=== PATIENT | female | born 1970 | race Caucasian/White ===

== ENCOUNTER 2017-02-02 18:32 | Emergency (ER) | payer OTHER ==
[~2017-02-02] VITALS: Ht 157.5 cm; Wt 80.7 kg
[~2017-02-02 18:32] MED LIST: CYCL-36 PO; LIDO1SOL PO; OXYC1SOL5 PO
[2017-02-02 18:38] VITALS: BP 134/78; PULSE 74; RESP 16; TEMP 98.4; O2SAT 100
[2017-02-02 19:28] LABS: BLOOD, URINE NEG (NEG); GLUCOSE,URINE NEG (NEG); KETONE, URINE NEG (NEG); NITRITE,URINE NEG (NEG); PH, URINE 5.5 (5.0-8.5)
[2017-02-02 19:46] LABS: COMMENT (UR) CULT NOT INDICATED; CULTURE IF INDICATED CULT NOT INDICATED; MUCUS URINE OCC /lpf (OCC); SQUAMOUS EPITHELIAL CELL URINE 0-5 /hpf (0-5); URINE COLOR YELLOW (YELLW/STRAW)
[2017-02-02] MEDS ORDERED: SODIUM CHLOR 0.9% 1000 ML INJ 1,000 ML IV ONE (19:47)
--- NOTE | 2017-02-02 19:47 | PD ---
HPI Chief Complaint: Abdominal Pain Time Seen by Provider: 19:22 Travel History International Travel<30 days: No Contact w/Intl Traveler<30days: No Traveled to known affect area: No History of Present Illness HPI The patient is a 46-year-old female that complains of bilateral flank pain radiating to the left lower quadrant. Most all the pain is in the lower quadrants at this time. She denies any vaginal discharge, diarrhea, fever or vomiting but does have some nausea. She is A0. She does have a history of a tummy Tuck and 3 C-sections but these are her only abdominal surgeries. She is on control IUD. She had the NovaSure procedure where her endometrium was scraped and she does not have periods because of this. She states the pain starts in the pelvis and tracks up to both sides of her back. PFSH Past Medical History Tetanus Vaccination: > 5 Years Influenza Vaccination: No ?: Not Dilation and Curettage (D&C): Yes (novasure precedure) Past Surgical History Section: Yes (x3) Other Surgery: Yes (tummy tuck) Social History Alcohol Use: Yes (occ) Tobacco Use: No Allergies-Medications (Allergen,Severity, Reaction): Coded Allergies: No Known Allergies (Unverified , 02/02/17) Reported Meds & Prescriptions Reported Meds & Active Scripts Active No Active Prescriptions or Reported Medications Review of Systems Except as stated in HPI: all other systems reviewed are Neg Physical Exam Narrative GENERAL: The patient is alert, oriented 3 in moderate apparent distress with her pelvic pain. Her vital signs are normal. SKIN: Focused skin assessment warm/dry. HEAD: Atraumatic. Normocephalic. EYES: Pupils equal and round. No scleral icterus. No injection or drainage. ENT: No nasal bleeding or discharge. Mucous membranes pink and moist. NECK: Trachea midline. No JVD. CARDIOVASCULAR: Regular rate and rhythm. No murmur appreciated. RESPIRATORY: No accessory muscle use. Clear to auscultation. Breath sounds equal bilaterally. GASTROINTESTINAL: Abdomen soft, with tenderness in the bilateral pelvis, nondistended. Hepatic and splenic margins not palpable. No guarding or rebound is present. MUSCULOSKELETAL: No obvious deformities. No clubbing. No cyanosis. No edema. NEUROLOGICAL: Awake and alert. No obvious cranial nerve deficits. Motor grossly within normal limits. Normal speech. PSYCHIATRIC: Appropriate mood and affect; insight and judgment normal. GENITOURINARY: Normal external genitalia without lesions or erythema. Vaginal vault without blood or drainage. Cervical os was closed without drainage. There is cervical motion tenderness and movement of the cervix completely reproduces the patient's pain. Uterus tender and nonenlarged. Bilateral adnexa tender without masses. Data Data Last Documented VS Vital Signs Date Time Temp Pulse Resp B/P Pulse Ox O2 Delivery O2 Flow Rate FiO2 02/02/17 18:38 98.4 74 16 134/78 100 Orders Urinalysis - C+S If Indicated (02/02/17 18:45) Complete Blood Count With Diff (02/02/17 19:47) Comprehensive Metabolic Panel (02/02/17 19:47) Gc And Chlamydia Pcr (02/02/17 19:47) Wet Prep Profile (02/02/17 19:47) Ketorolac Inj (Toradol Inj) (02/02/17 20:30) Non-Formulary Drug (02/02/17 21:00) Labs Laboratory Tests Test 02/02/17 02/02/17 19:20 20:00 Urine Color YELLOW Urine Turbidity CLEAR Urine pH 5.5 Urine Specific [place] 1.013 Urine Protein NEG mg/dL Urine Glucose (UA) NEG mg/dL Urine Ketones NEG mg/dL Urine Occult Blood NEG Urine Nitrite NEG Urine Bilirubin NEG Urine Leukocyte Esterase NEG Urine Squamous Epithelial 0-5 /hpf Cells Urine Mucus OCC /lpf Microscopic Urinalysis Comment CULT NOT INDICATED White Blood Count 8.4 TH/MM3 Red Blood Count 4.07 MIL/MM3 Hemoglobin 12.3 GM/DL Hematocrit 35.3 % Mean Corpuscular Volume 86.5 FL Mean Corpuscular Hemoglobin 30.2 PG Mean Corpuscular Hemoglobin 34.9 % Concent Red Cell Distribution Width 11.8 % Platelet Count 223 TH/MM3 Mean Platelet Volume 9.4 FL Neutrophils (%) (Auto) 59.5 % Lymphocytes (%) (Auto) 20.0 % Monocytes (%) (Auto) 7.0 % Eosinophils (%) (Auto) 10.1 % Basophils (%) (Auto) 3.4 % Neutrophils # (Auto) 4.9 TH/MM3 Lymphocytes # (Auto) 1.7 TH/MM3 Monocytes # (Auto) 0.6 TH/MM3 Eosinophils # (Auto) 0.9 TH/MM3 Basophils # (Auto) 0.3 TH/MM3 CBC Comment DIFF FINAL Differential Comment Clue Cells (Wet Prep) NONE SEEN Vaginal Trichomonas (Wet Prep) NONE SEEN Vaginal Yeast (Wet Prep) NONE SEEN Sodium Level 140 MEQ/L Potassium Level 3.5 MEQ/L Chloride Level 107 MEQ/L Carbon Dioxide Level 25.3 MEQ/L Anion Gap 8 MEQ/L Blood Urea Nitrogen 15 MG/DL Creatinine 0.75 MG/DL Estimat Glomerular Filtration 82 ML/MIN Rate Random Glucose 100 MG/DL Calcium Level 8.4 MG/DL Total Bilirubin 0.5 MG/DL Aspartate Amino Transf 19 U/L (AST/SGOT) Alanine Aminotransferase 32 U/L (ALT/SGPT) Alkaline Phosphatase 70 U/L Total Protein 6.7 GM/DL Albumin 3.4 GM/DL [facility] Medical Decision Making Medical Screen Exam Complete: Yes Emergency Medical Condition: Yes Medical Record Reviewed: Yes Interpretation(s) The wet prep is negative for clue cells, Trichomonas and vaginal knees. The urinalysis is normal and culture is not indicated. The CBC is normal. The complete metabolic profile shows a GFR of 82, calcium 8.4 but is otherwise normal. The [id number] urine test is negative. Differential Diagnosis PID, appendicitis, diverticulitis, cystitis, pyelonephritis, colitis, anemia, electrolyte disorder, ovarian torsion Narrative Course The exquisite cervical tenderness suggest PID. The bilateral tenderness/pain is against ovarian torsion. The fact that she feels pain tracking up into her back and also suggest PID. There is no evidence for any urinary infection. Plan: The patient will be given Rocephin and doxycycline. Diagnosis Primary Impression: PID (acute pelvic inflammatory disease) Additional Instructions: As we discussed, follow-up with your zipper repairer as soon as possible. Drink plenty of liquids. Med/Other Pt SpecificInfo: Prescription(s) given Scripts Promethazine (Phenergan)25 Mg [id number] Mg PO Q6H PRN (NAUSEA OR VOMITING) #30 TAB Ref 0 Prov:Osmar Shrestha MD 02/02/17 Hydrocodone-Acetaminophen (Lortab)5-325 Mg Tab1 Tab PO Q4H PRN (PAIN) #30 TAB Ref 0 Prov:Osmar Shrestha MD 02/02/17 Doxycycline Hyclate 100 Mg [id number] Mg PO BID #20 CAP Ref 0 Prov:Osmar Shrestha MD 02/02/17 Disposition: 01 DISCHARGE HOME Condition: Stable Osmar Shrestha MD February 02, 2017 19:47
[2017-02-02] MEDS ORDERED: ONDANSETRON HCL 4 MG/2 ML VIAL IV ONE (20:00)
[2017-02-02] MEDS ORDERED: KETOROLAC TROMETHAMINE 60 MG/2 ML (IM) VIAL IVP ONE (20:00)
[2017-02-02] MEDS ORDERED: KETOROLAC TROMETHAMINE 60 MG/2 ML (IM) VIAL IM ONE (20:30)
[2017-02-02 20:43] LABS: AUTOMATED NEUTROPHIL # 4.9 TH/MM3 (1.8-7.7); BASOPHIL # 0.3 TH/MM3 (0-0.2); BASOPHIL % 3.4 % (0.0-2.0); EOSINOPHIL # 0.9 TH/MM3 (0-0.4); EOSINOPHIL % 10.1 % (0.0-4.0); HEMATOCRIT 35.3 % (35.0-46.0); HEMO FLAGS DIFF FINAL; LYMPHOCYTE # 1.7 TH/MM3 (1.0-4.8); MEAN CELL VOLUME 86.5 FL (80.0-100.0); MEAN CORPUSCULAR HEMOGLOBIN 30.2 PG (27.0-34.0); MEAN CORPUSCULAR HGB CONC 34.9 % (32.0-36.0); NEUT % 59.5 % (16.0-70.0); PLATELET COUNT 223 TH/MM3 (150-450); RED BLOOD COUNT 4.07 MIL/MM3 (4.00-5.30); RED CELL DISTRIBUTION WIDTH 11.8 % (11.6-17.2); WHITE BLOOD COUNT 8.4 TH/MM3 (4.0-11.0)
[2017-02-02 20:52] LABS: CHLORIDE 107 MEQ/L (98-107); POTASSIUM 3.5 MEQ/L (3.5-5.1); SODIUM (NA) 140 MEQ/L (136-145)
[2017-02-02 20:57] LABS: ANION GAP 8 MEQ/L (5-15); BICARBONATE 25.3 MEQ/L (21.0-32.0); BLOOD UREA NITROGEN 15 MG/DL (7-18)
[2017-02-02 21:00] LABS: ALT (GPT) 32 U/L (10-53); AST (GOT) 19 U/L (15-37); GLOMERULAR FILTRATION RATE 82 ML/MIN (>89)
[2017-02-02] MEDS ORDERED: PROMETHAZINE 25 MG IM ONE (21:00)
[2017-02-02 21:02] LABS: TOTAL BILIRUBIN ADULT 0.5 MG/DL (0.2-1.0)
[2017-02-02 21:03] LABS: ALKALINE PHOSPHATASE 70 U/L (45-117)
[2017-02-02 21:25] VITALS: BP 120/78; PULSE 78; RESP 17; O2SAT 97
[2017-02-02] MEDS ORDERED: PROM25TA10 PO (21:26)
[2017-02-02] MEDS ORDERED: DOXY100C PO (21:26)
[2017-02-02] MEDS ORDERED: HYDR-3533 PO (21:26)
[2017-02-02] MEDS ORDERED: LIDOCAINE HCL 1% 50 ML VIAL IM ONE (21:45)
[2017-02-02 22:05] VITALS: BP 117/75; PULSE 68; RESP 16; O2SAT 98
[2017-02-02 22:35] VITALS: BP 122/72
[2017-02-03 00:16] LABS: CHLAMYDIA PCR NOT DETECTED (NOT DETECT); NEISSERIA PCR NOT DETECTED (NOT DETECT)
[2017-03-05] MEDS ORDERED: CEFT1INJ IM (19:30)
[2017-03-05] MEDS ORDERED: [UNRECOGNIZED DRUG - CODE] PO (19:32)
[2017-03-05] MEDS ORDERED: NAPR500T PO (19:34)
== END 2017-02-02 22:37 | disposition home or self-care (01) ==
LOC: PHED 18:32
DX: N73.9 Female pelvic inflammatory disease, unspecified (principal)
CPT/HCPCS: 80053; 81001; 85025; 87210; 87491; 87591; 96365; 96372; 99284; J0696; J1885

== ENCOUNTER 2017-03-06 07:19 | Emergency (ER) | payer OTHER ==
[~2017-03-06] VITALS: Ht 157.5 cm; Wt 78.0 kg
[~2017-03-06 07:19] MED LIST changes: -CYCL-36 PO; -LIDO1SOL PO; +NAPR500T PO; -OXYC1SOL5 PO; +[UNRECOGNIZED DRUG - CODE] PO
[2017-03-06 07:23] VITALS: BP 145/94; PULSE 66; RESP 17; TEMP 98.3; O2SAT 100
[2017-03-06] MEDS ORDERED: IBUP200C PO (08:15)
--- NOTE | 2017-03-06 08:28 | PD ---
HPI Chief Complaint: Pain: Acute or Chronic Time Seen by Provider: 08:19 Travel History International Travel<30 days: No Contact w/Intl Traveler<30days: No Traveled to known affect area: No History of Present Illness HPI This is a 46 year old female who presents to the emergency department with abdominal discomfort this been going on for 4 days mostly in the left lower pelvis, constant, radiating to the low back with numbness and paresthesias down the back of her left leg extending around the knee. She does have a history of sciatica in the past. She says she feels like this is associated with her ovary. She said she has had intermittent symptoms like this but never this severe ever since she had an endometrial ablation 2 years ago. She denies any fevers or chills, denies any vaginal discharge or bleeding and denies any dysuria. She denies any recent injury although she does work out. PFSH Past Medical History Diminished Hearing: No Tetanus Vaccination: Unknown Influenza Vaccination: No ?: Not LMP: ON BC, STATES DOES NOT GET. Dilation and Curettage (D&C): Yes (novasure precedure) Past Surgical History Section: Yes (x3) Other Surgery: Yes (tummy tuck) Social History Alcohol Use: Yes (occ) Tobacco Use: No Substance Use: No Allergies-Medications (Allergen,Severity, Reaction): Coded Allergies: No Known Allergies (Unverified , 03/06/17) Reported Meds & Prescriptions Reported Meds & Active Scripts Active Reported Ibuprofen 200 Mg Cap 800 Mg PO Q6H PRN Review of Systems Except as stated in HPI: all other systems reviewed are Neg Physical Exam Narrative GENERAL:Well appearing, no acute distress SKIN: Focused skin assessment warm and dry. HEAD: Atraumatic. Normocephalic. EYES: Pupils equal and round. No injection or drainage. ENT: Moist mucous membranes NECK: Trachea midline. CARDIOVASCULAR: Regular rate and rhythm. No murmur appreciated. RESPIRATORY: Clear to auscultation. Breath sounds equal bilaterally. GASTROINTESTINAL: Abdomen soft, firm mass in the suprapubic region, tender to palpation in the left lower quadrant with no rebound/guarding SCALE MANAGER: scant white discharge in the vault, normal appearing cervix MUSCULOSKELETAL: No obvious deformities. NEUROLOGICAL: Awake and alert. No obvious cranial nerve deficits. Moving all extremities. PSYCHIATRIC: Appropriate mood and affect; insight and judgment normal. Data Data Last Documented VS Vital Signs Date Time Temp Pulse Resp B/P Pulse Ox O2 Delivery O2 Flow Rate FiO2 03/06/17 10:22 67 16 132/79 97 Room Air 03/06/17 07:23 98.3 Orders Complete Blood Count With Diff (03/06/17 08:25) Comprehensive Metabolic Panel (03/06/17 08:25) Ed Urine Pregnancytest Poc (03/06/17 08:25) Urinalysis - C+S If Indicated (03/06/17 08:25) Ct Abd/Pel W Iv Contrast(Rout) (03/06/17 ) Ketorolac Inj (Toradol Inj) (03/06/17 08:30) Sodium Chlor 0.9% 1000 Ml Inj (Ns 1000 M (03/06/17 08:30) Hydromorphone Pf Inj (Dilaudid Pf Inj) (03/06/17 08:30) Iohexol 350 Inj (Omnipaque 350 Inj) (03/06/17 09:30) Labs Laboratory Tests Test 03/06/17 03/06/17 08:35 08:59 White Blood Count 6.3 TH/MM3 Red Blood Count 4.68 MIL/MM3 Hemoglobin 13.6 GM/DL Hematocrit 40.7 % Mean Corpuscular Volume 86.9 FL Mean Corpuscular Hemoglobin 29.1 PG Mean Corpuscular Hemoglobin 33.5 % Concent Red Cell Distribution Width 12.0 % Platelet Count 202 TH/MM3 Mean Platelet Volume 8.8 FL Neutrophils (%) (Auto) 55.7 % Lymphocytes (%) (Auto) 21.5 % Monocytes (%) (Auto) 7.7 % Eosinophils (%) (Auto) 14.2 % Basophils (%) (Auto) 0.9 % Neutrophils # (Auto) 3.5 TH/MM3 Lymphocytes # (Auto) 1.3 TH/MM3 Monocytes # (Auto) 0.5 TH/MM3 Eosinophils # (Auto) 0.9 TH/MM3 Basophils # (Auto) 0.1 TH/MM3 CBC Comment DIFF FINAL Differential Comment Sodium Level 140 MEQ/L Potassium Level 4.3 MEQ/L Chloride Level 106 MEQ/L Carbon Dioxide Level 27.1 MEQ/L Anion Gap 7 MEQ/L Blood Urea Nitrogen 17 MG/DL Creatinine 0.80 MG/DL Estimat Glomerular Filtration 77 ML/MIN Rate Random Glucose 95 MG/DL Calcium Level 8.3 MG/DL Total Bilirubin 0.3 MG/DL Aspartate Amino Transf 26 U/L (AST/SGOT) Alanine Aminotransferase 49 U/L (ALT/SGPT) Alkaline Phosphatase 73 U/L Total Protein 6.9 GM/DL Albumin 3.8 GM/DL Urine Collection Type CLEAN CATCH Urine Color YELLOW Urine Turbidity CLEAR Urine pH 6.5 Urine Specific [place] 1.014 Urine Protein NEG mg/dL Urine Glucose (UA) NEG mg/dL Urine Ketones NEG mg/dL Urine Occult Blood NEG Urine Nitrite NEG Urine Bilirubin NEG Urine Leukocyte Esterase NEG Urine WBC 0-2 /hpf Urine Squamous Epithelial 6-8 /hpf Cells Urine Bacteria OCC /hpf Microscopic Urinalysis Comment CULT NOT INDICATED Urine Collection Time 08:59 [facility] Medical Decision Making Medical Screen Exam Complete: Yes Emergency Medical Condition: Yes Interpretation(s) Afebrile, no tachycardia, hypertensive No leukocytosis Electrolytes are reassuring Urinalysis: No infection Last 24 hours Impressions Abdomen/Pelvis CT 03/06/17 0000 Signed Impressions: Service Date/Time: February 09:08 - CONCLUSION: Obstructed endometrial canal with marked fluid retention in the uterus and bilateral hydrosalpinx. Obstructing neoplastic process in the lower uterine body or cervix needs to be excluded. 2.3 cm low density left adrenal nodule characteristic of an adenoma however further characterization with MRI should be considered. 3 discrete hepatic lesions, 2 of which are well characterize and represent a simple cyst and hemangioma. The third lesion in the inferior margin of the liver is nonspecific and needs further characterization. This can also be performed with MRI. No other acute or significant abnormality. Orion Marshall MD Differential Diagnosis Fibroid uterus, sciatica, ovarian cyst, ovarian torsion, pelvic inflammatory disease Narrative Course This is a 46-year-old female who presents to the emergency department with lower abdominal discomfort. She is a history of to endometrial ablations in the past. She was placed on a monitor and an IV was established. Labs were obtained which were reassuring. CT abdomen and pelvis demonstrates an obstructed endometrial canal with fluid retention in the uterus and bilateral hydrosalpinx. I spoke to Dr. Burch who was on-call for gynecology. He felt this was likely hematometrium in the setting of a stenosis following the patient 's ablations. He recommended that she follow up outpatient with a natural science manager. I advised her if she develops fevers or worsening symptoms she should return to the emergency department. We discussed the urgency of following up with her natural science manager as soon as possible and the patient expressed understanding. Diagnosis Primary Impression: Hematometra Patient Instructions: General Instructions Additional Instructions: Your endometrial canal is obstructed with fluid retention in your uterus. This needs to be evaluated by a natural science manager as soon as possible. If you develop fevers, chills, vaginal discharge or worsening pain return to the emergency department. Med/Other Pt SpecificInfo: Prescription(s) given Scripts Tramadol 50 Mg Tab50 Mg PO Q6H PRN (PAIN) #10 TAB Prov:eKy Monsalve MD 03/06/17 Disposition: 01 DISCHARGE HOME Condition: Stable Key Monsalve MD Mar 06, 2017 08:28
[2017-03-06] MEDS ORDERED: HYDROmorphone HCL PF 1 MG/ML VIAL IV PUSH ONE (08:30)
[2017-03-06] MEDS ORDERED: SODIUM CHLOR 0.9% 1000 ML INJ 1,000 ML IV ONE (08:30)
[2017-03-06] MEDS ORDERED: KETOROLAC TROMETHAMINE 30 MG/ML (IVP) VIAL IV PUSH ONE (08:30)
[2017-03-06 08:45] LABS: AUTOMATED NEUTROPHIL # 3.5 TH/MM3 (1.8-7.7); BASOPHIL # 0.1 TH/MM3 (0-0.2); BASOPHIL % 0.9 % (0.0-2.0); EOSINOPHIL # 0.9 TH/MM3 (0-0.4); EOSINOPHIL % 14.2 % (0.0-4.0); HEMATOCRIT 40.7 % (35.0-46.0); HEMO FLAGS DIFF FINAL; LYMPH % 21.5 % (9.0-44.0); LYMPHOCYTE # 1.3 TH/MM3 (1.0-4.8); MEAN CELL VOLUME 86.9 FL (80.0-100.0); MEAN CORPUSCULAR HEMOGLOBIN 29.1 PG (27.0-34.0); MEAN CORPUSCULAR HGB CONC 33.5 % (32.0-36.0); MONO % 7.7 % (0.0-8.0); NEUT % 55.7 % (16.0-70.0); PLATELET COUNT 202 TH/MM3 (150-450); RED BLOOD COUNT 4.68 MIL/MM3 (4.00-5.30); WHITE BLOOD COUNT 6.3 TH/MM3 (4.0-11.0)
[2017-03-06 08:52] LABS: CHLORIDE 106 MEQ/L (98-107); POTASSIUM 4.3 MEQ/L (3.5-5.1); SODIUM (NA) 140 MEQ/L (136-145)
[2017-03-06 08:56] LABS: ANION GAP 7 MEQ/L (5-15); BICARBONATE 27.1 MEQ/L (21.0-32.0); BLOOD UREA NITROGEN 17 MG/DL (7-18)
[2017-03-06 08:59] LABS: ALT (GPT) 49 U/L (10-53); AST (GOT) 26 U/L (15-37); GLOMERULAR FILTRATION RATE 77 ML/MIN (>89)
[2017-03-06 09:01] LABS: TOTAL BILIRUBIN ADULT 0.3 MG/DL (0.2-1.0)
[2017-03-06 09:02] LABS: ALKALINE PHOSPHATASE 73 U/L (45-117)
[2017-03-06 09:05] LABS: BLOOD, URINE NEG (NEG); GLUCOSE,URINE NEG (NEG); KETONE, URINE NEG (NEG); NITRITE,URINE NEG (NEG); PH, URINE 6.5 (5.0-8.5)
[2017-03-06 09:09] LABS: METHOD OF COLLECTION CLEAN CATCH; URINE COLOR YELLOW (YELLW/STRAW)
[2017-03-06 09:10] LABS: BACTERIA, URINE OCC /hpf; COMMENT (UR) CULT NOT INDICATED; CULTURE IF INDICATED CULT NOT INDICATED; WBC, URINE 0-2 /hpf (0-5)
[2017-03-06] MEDS ORDERED: IOHEXOL 350 MG/ML 10 ML VIAL (for RAD DIAG) IV ONE (09:30)
--- NOTE | 2017-03-06 10:09 | RADRPT ---
EXAM DATE/TIME: 03/06/2017 09:08 [place] COMPARISON: No previous studies available for comparison. INDICATIONS : Left lower quadrant pain. IV CONTRAST: 100 cc Omnipaque 350 (iohexol) IV ORAL CONTRAST: No oral contrast ingested. RADIATION DOSE: 15.54 CTDIvol (mGy) MEDICAL HISTORY : None SURGICAL HISTORY : Tubal ligation. section.Tummy tuck. ENCOUNTER: Initial ACUITY: 4 - 6 days PAIN SCALE: 10/10 LOCATION: Left lower quadrant TECHNIQUE: Volumetric scanning of the abdomen and pelvis was performed. Using automated exposure control and ad justment of the mA and/or kV according to patient size, radiation dose was kept as low as reasonably achievable to obtain optimal diagnostic quality images. DICOM format image data is available electro nically for review and comparison. FINDINGS: LOWER LUNGS: The visualized lower lungs are clear. LIVER: 3 discrete space occupying lesions are identified in the liver. There is a 2.7 cm simple cyst in the left hepatic lobe. A 2.1 cm hypodense nodule with peripheral nodular enhancement is identified in seg ment 8 just beneath the dome of the diaphragm. The third lesion is located in the inferior posterior tip of the right hepatic lobe and measures 1.4 cm. This lesion is nonspecific. There is no dilation o f the biliary tree. No calcified gallstones. SPLEEN: Normal size without lesion. PANCREAS: Within normal limits. KIDNEYS: Normal in size and shape. There is no mass, stone or hydronephrosis. ADRENAL GLANDS: A 2.3 cm low-density nodule is identified in the left adrenal gland. Right adrenal gland is normal. VASCULAR: There is no aortic aneurysm. BOWEL/MESENTERY: The stomach, small bowel, and colon demonstrate no acute abnormality. There is no free intraperitone al air or fluid. ABDOMINAL WALL: Within normal limits. RETROPERITONEUM: There is no lymphadenopathy. BLADDER: No wall thickening or mass. REPRODUCTIVE: The endometrial canal is markedly distended with fluid. Bilateral hydrosalpinx is noted. INGUINAL: There is no lymphadenopathy or hernia. MUSCULOSKELETAL: Within normal limits for patient age. CONCLUSION: Obstructed endometrial canal with marked fluid retention in the uterus and bilateral hydrosalpinx. Ob structing neoplastic process in the lower uterine body or cervix needs to be excluded. 2.3 cm low density left adrenal nodule characteristic of an adenoma however further characterization with MRI should be considered. 3 discrete hepatic lesions, 2 of which are well characterize and represent a simple cyst and hemangio ma. The third lesion in the inferior margin of the liver is nonspecific and needs further characteriz ation. This can also be performed with MRI. No other acute or significant abnormality. Orion Marshall MD on March 06, 2017 at 9:45 Board Certified Radiologist. This report was verified electronically.
[2017-03-06 10:22] VITALS: BP 132/79; PULSE 67; RESP 16; O2SAT 97
[2017-03-06] MEDS ORDERED: TRAM50TA PO (10:29)
[2017-03-07] MEDS ORDERED: NORC5TAB PO (15:35)
== END 2017-03-06 10:49 | disposition home or self-care (01) ==
LOC: PHED 07:19
DX: N85.7 Hematometra (principal)
CPT/HCPCS: 74177; 80053; 81001; 84703; 85025; 96361; 96374; 96375; 99285; J1170; J1885; J7030; Q9967

== ENCOUNTER 2017-03-07 14:53 | Emergency (ER) | payer OTHER ==
[~2017-03-07] VITALS: Ht 157.5 cm; Wt 80.0 kg
[~2017-03-07 14:53] MED LIST changes: +IBUP200C PO; -NAPR500T PO; +TRAM50TA PO; -[UNRECOGNIZED DRUG - CODE] PO
[2017-03-07 14:55] VITALS: BP 142/81; PULSE 82; RESP 16; TEMP 98.2; O2SAT 98
--- NOTE | 2017-03-07 15:10 | PD ---
Physical Exam Time Seen by Provider: 15:07 Narrative 46 y/o female with lower abd/back pain, persistent. Seen at [facility] yesterday, d/ x with hematometra. Vital signs reviewed. Seen at triage desk. Awaiting bed placement. Data Data Last Documented VS Vital Signs Date Time Temp Pulse Resp B/P Pulse Ox O2 Delivery O2 Flow Rate FiO2 03/07/17 14:55 98.2 82 16 142/81 98 MDM Medical Record Reviewed: Yes Supervised Visit with STEFANI: Thaddeus Johnson Mar 07, 2017 15:10
[2017-03-07] MEDS ORDERED: NORC5TAB PO (15:35)
--- NOTE | 2017-03-07 15:35 | PD ---
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 Seen in our emergency department yesterday and diagnosed with hematometra, presumptively due to previous ablations and cervical scarring versus cervical cancer. Discharged to home and instructed to follow-up with ENVIRONMENTAL PLANNING ENGINEER. Met with primary who tried to assist her with ENVIRONMENTAL PLANNING ENGINEER follow-up which will be difficult due to her insurance patient states. She however hasn't having persistent pain and then tramadol given yesterday is not helping. PFSH Past Medical History Medical History: Denies Significant Hx Diminished Hearing: No ?: Unknown LMP: 2014 Dilation and Curettage (D&C): Yes (novasure precedure) Past Surgical History Section: Yes (x3) Other Surgery: Yes (tummy tuck) Social History Alcohol Use: Yes (socially ) Tobacco Use: No Substance Use: No Allergies-Medications (Allergen,Severity, Reaction): Coded Allergies: No Known Allergies (Unverified , 03/07/17) Reported Meds & Prescriptions Reported Meds & Active Scripts Active [place] (Hydrocodone-Acetaminophen) 5-325 mg Tab 1-2 Tab PO Q6H PRN Tramadol (Tramadol HCl) 50 Mg Tab 50 Mg PO Q6H PRN Reported Ibuprofen 200 Mg Cap 800 Mg PO Q6H PRN Review of Systems Except as stated in HPI: all other systems reviewed are Neg Physical Exam Narrative GENERAL: Well-appearing female in no acute distress SKIN: Focused skin assessment warm/dry. HEAD: Normocephalic. EYES: No scleral icterus. No injection or drainage. ENT: Mucous membranes pink and moist. CARDIOVASCULAR: Regular rate and rhythm. RESPIRATORY: No accessory muscle use. GASTROINTESTINAL: Abdomen soft, suprapubic fullness and tenderness MUSCULOSKELETAL: Normal gait NEUROLOGICAL: Awake and alert. Normal speech. PSYCHIATRIC: Appropriate mood and affect; insight and judgment normal. Data Data Last Documented VS Vital Signs Date Time Temp Pulse Resp B/P Pulse Ox O2 Delivery O2 Flow Rate FiO2 03/07/17 14:55 98.2 82 16 142/81 98 MDM Medical Decision Making Medical Screen Exam Complete: Yes Emergency Medical Condition: Yes Medical Record Reviewed: Yes Differential Diagnosis 46-year-old female here with pelvic pain. Diagnosed yesterday with hematometra , having persistent pain despite tramadol. Patient ultimately needs ENVIRONMENTAL PLANNING ENGINEER follow-up for cervical dilatation, possible hysteroscopy and biopsy. Narrative Course Patient will be given small prescription for [place] and encouraged to follow-up with ENVIRONMENTAL PLANNING ENGINEER. Given to ENVIRONMENTAL PLANNING ENGINEER clinic options for outpatient follow-up. Diagnosis Primary Impression: Hematometra Referrals: [facility] call for appointment [facility] call for appointment Additional Instructions: Continue Motrin, tramadol for mild to moderate pain. [place] as needed for severe pain. Follow-up with ENVIRONMENTAL PLANNING ENGINEER as discussed. Med/Other Pt SpecificInfo: Prescription(s) given Scripts Hydrocodone-Acetaminophen ([place])5-325 mg Tab1-2 Tab PO Q6H PRN (PAIN) #20 TAB Ref 0 Prov:Charleen Johnson MD 03/07/17 Disposition: 01 DISCHARGE HOME Condition: Stable Charleen Johnson MD Mar 07, 2017 15:35
== END 2017-03-07 15:58 | disposition home or self-care (01) ==
LOC: NEPD 14:53
DX: N85.7 Hematometra (principal); Z79.899 Other long term (current) drug therapy
CPT/HCPCS: 99283

== ENCOUNTER 2017-03-21 12:46 | Emergency (ER) | payer OTHER ==
[~2017-03-21] VITALS: Ht 157.5 cm; Wt 79.5 kg
[~2017-03-21 12:46] MED LIST changes: +NORC5TAB PO
[2017-03-21 12:48] VITALS: BP 156/91; PULSE 78; RESP 17; TEMP 98; O2SAT 100
[2017-03-21] MEDS ORDERED: KETOROLAC TROMETHAMINE 30 MG/ML (IVP) VIAL IV PUSH ONE (15:00)
[2017-03-21] MEDS ORDERED: SODIUM CHLOR 0.9% 1000 ML INJ 1,000 ML IV ONE (15:00)
[2017-03-21] MEDS ORDERED: oxyCODONE/ACETAMINOPHEN 5 MG/325 MG TAB PO ONE (15:00)
[2017-03-21 15:54] LABS: AUTOMATED NEUTROPHIL # 5.9 TH/MM3 (1.8-7.7); BASOPHIL % 0.5 % (0.0-2.0); EOSINOPHIL # 0.9 TH/MM3 (0-0.4); EOSINOPHIL % 9.2 % (0.0-4.0); HEMATOCRIT 42.4 % (35.0-46.0); HEMO FLAGS DIFF FINAL; LYMPH % 20.9 % (9.0-44.0); MEAN CELL VOLUME 87.5 FL (80.0-100.0); MEAN CORPUSCULAR HEMOGLOBIN 28.2 PG (27.0-34.0); MEAN CORPUSCULAR HGB CONC 32.3 % (32.0-36.0); MONO % 6.6 % (0.0-8.0); NEUT % 62.8 % (16.0-70.0); PLATELET COUNT 234 TH/MM3 (150-450); RED BLOOD COUNT 4.85 MIL/MM3 (4.00-5.30); RED CELL DISTRIBUTION WIDTH 12.6 % (11.6-17.2); WHITE BLOOD COUNT 9.4 TH/MM3 (4.0-11.0)
[2017-03-21 16:00] LABS: BACTERIA, URINE MOD /hpf; BLOOD, URINE NEG (NEG); COMMENT (UR) CULTURE INDICATED; CULTURE IF INDICATED CULTURE INDICATED; GLUCOSE,URINE NEG (NEG); KETONE, URINE NEG (NEG); NITRITE,URINE NEG (NEG); SQUAMOUS EPITHELIAL CELL URINE 2 /hpf (0-5); URINE COLOR LIGHT-YELLOW (YELLW/STRAW)
[2017-03-21 16:03] VITALS: RESP 16
[2017-03-21 16:12] LABS: BICARBONATE 25.2 MEQ/L (21.0-32.0); POTASSIUM 4.5 MEQ/L (3.5-5.1)
[2017-03-21] MEDS ORDERED: PERC5TAB12 PO (17:02)
[2017-03-21] MEDS ORDERED: MACR100C2 PO (17:02)
--- NOTE | 2017-03-21 17:03 | PD ---
HPI Chief Complaint: Pain: Acute or Chronic Time Seen by Provider: 14:34 Travel History International Travel<30 days: No Contact w/Intl Traveler<30days: No Traveled to known affect area: No History of Present Illness HPI Patient is a 46-year-old female comes in complaining of abdominal pain. She has been here twice before the past 2 weeks for this. She was diagnosed with some blood in her uterus likely from prior ablations. She has an appointment with [facility] to follow up on Friday. She is out of the hydrocodone that she was prescribed at her previous visit. She says the pain is not new. She does feel pressure when she urinates. She denies any fever or chills. She denies vaginal discharge or bleeding. PFSH Past Medical History Diminished Hearing: No Genitourinary: Yes Tetanus Vaccination: > 5 Years Influenza Vaccination: No ?: Not : 3 Miscarriage: 0 : 0 Dilation and Curettage (D&C): Yes (novasure precedure) Past Surgical History Section: Yes (x3) Tonsillectomy: Yes Other Surgery: Yes (tummy tuck/ UTERNE ABLATION) Social History Alcohol Use: Yes (socially ) Tobacco Use: No Substance Use: No (pt denies ) Allergies-Medications (Allergen,Severity, Reaction): Coded Allergies: No Known Allergies (Unverified , 03/21/17) Reported Meds & Prescriptions Reported Meds & Active Scripts Active Reported Ibuprofen 200 Mg Cap 800 Mg PO Q6H PRN Review of Systems Except as stated in HPI: all other systems reviewed are Neg General / Constitutional: No: Fever, Chills HENT: No: Headaches, Lightheadedness Cardiovascular: No: Chest Pain or Discomfort Respiratory: No: Shortness of Breath Gastrointestinal: Positive: Abdominal Pain, No: Nausea, Vomiting Genitourinary: Positive: Urgency, No: Dysuria Skin: No Rash, No Change in Pigmentation Neurologic: No: Weakness, Dizziness Physical Exam Narrative GENERAL: Awake and alert, in no acute distress. SKIN: Focused skin assessment warm/dry. HEAD: Atraumatic. Normocephalic. EYES: Pupils equal and round. No scleral icterus. ENT: No nasal bleeding or discharge. Mucous membranes pink and moist. NECK: Trachea midline. No JVD. CARDIOVASCULAR: Regular rate and rhythm. No murmur appreciated. RESPIRATORY: No accessory muscle use. Clear to auscultation. Breath sounds equal bilaterally. GASTROINTESTINAL: Abdomen soft, nondistended. Mild lower abdominal tenderness, no rebound or guarding. MUSCULOSKELETAL: No obvious deformities. No clubbing. No cyanosis. No edema. NEUROLOGICAL: Awake and alert. No obvious cranial nerve deficits. Motor grossly within normal limits. Normal speech. PSYCHIATRIC: Appropriate mood and affect; insight and judgment normal. Data Data Last Documented VS Vital Signs Date Time Temp Pulse Resp B/P Pulse Ox O2 Delivery O2 Flow Rate FiO2 03/21/17 16:03 16 03/21/17 14:26 76 03/21/17 12:48 98.0 156/91 100 Room Air Orders Complete Blood Count With Diff (03/21/17 14:51) Basic Metabolic Panel (Bmp) (03/21/17 14:51) Urinalysis - C+S If Indicated (03/21/17 14:51) Iv Access Insert/Monitor (03/21/17 14:51) Sodium Chlor 0.9% 1000 Ml Inj (Ns 1000 M (03/21/17 15:00) Ketorolac Inj (Toradol Inj) (03/21/17 15:00) Oxycodone-Acetamin 5-325 Mg (Percocet (03/21/17 15:00) Urine Culture (03/21/17 15:00) Labs Laboratory Tests Test 03/21/17 15:00 White Blood Count 9.4 TH/MM3 Red Blood Count 4.85 MIL/MM3 Hemoglobin 13.7 GM/DL Hematocrit 42.4 % Mean Corpuscular Volume 87.5 FL Mean Corpuscular Hemoglobin 28.2 PG Mean Corpuscular Hemoglobin 32.3 % Concent Red Cell Distribution Width 12.6 % Platelet Count 234 TH/MM3 Mean Platelet Volume 9.2 FL Neutrophils (%) (Auto) 62.8 % Lymphocytes (%) (Auto) 20.9 % Monocytes (%) (Auto) 6.6 % Eosinophils (%) (Auto) 9.2 % Basophils (%) (Auto) 0.5 % Neutrophils # (Auto) 5.9 TH/MM3 Lymphocytes # (Auto) 2.0 TH/MM3 Monocytes # (Auto) 0.6 TH/MM3 Eosinophils # (Auto) 0.9 TH/MM3 Basophils # (Auto) 0.0 TH/MM3 CBC Comment DIFF FINAL Differential Comment Urine Color LIGHT-YELLOW Urine Turbidity CLEAR Urine pH 5.0 Urine Specific [place] 1.006 Urine Protein NEG mg/dL Urine Glucose (UA) NEG mg/dL Urine Ketones NEG mg/dL Urine Occult Blood NEG Urine Nitrite NEG Urine Bilirubin NEG Urine Urobilinogen LESS THAN 2.0 MG/DL Urine Leukocyte Esterase NEG Urine WBC 1 /hpf Urine Squamous Epithelial 2 /hpf Cells Urine Bacteria MOD /hpf Microscopic Urinalysis Comment CULTURE INDICATED Sodium Level 139 MEQ/L Potassium Level 4.5 MEQ/L Chloride Level 107 MEQ/L Carbon Dioxide Level 25.2 MEQ/L Anion Gap 7 MEQ/L Blood Urea Nitrogen 13 MG/DL Creatinine 0.76 MG/DL Estimat Glomerular Filtration 81 ML/MIN Rate Random Glucose 73 MG/DL Calcium Level 9.1 MG/DL [facility] Medical Decision Making Medical Screen Exam Complete: Yes Emergency Medical Condition: Yes Medical Record Reviewed: Yes Differential Diagnosis Abdominal pain versus medication refill versus UTI Narrative Course Patient is a 46-year-old female who comes in complaining of abdominal pain. She has had this pain for a while, and has been here before for it. She says it has not changed since she was here 2 weeks ago. She is just out of her hydrocodone. IV established, labs sent. Labs show no acute abnormalities. Urinalysis does have some bacteria in it. With prescription for Macrobid as well as Percocet. She is advised to keep her [facility] appointment Friday. Advised to return to the ED as needed for any worsening symptoms. Diagnosis Primary Impression: Hematometra Patient Instructions: Abdominal Pain (ED), General Instructions, Urinary Tract Infection in Women (ED) Departure Forms: Tests/Procedures, Work Release Special Instructions: Patient needs to be allowed to sit as needed while working. Additional Instructions: Follow up with brand advocate. Take pain medicine as needed. Return to the ED as needed for any worsening symptoms. Scripts Nitrofurantoin Monohydrate Macrocrystals (Macrobid)100 Mg [id number] Mg PO BID 5 Days Ref 0 Prov:Clair Mitchell MD 03/21/17 Oxycodone-Acetaminophen (Percocet)5-325 mg Tab1 Tab PO Q6H PRN (PAIN) #12 TAB Ref 0 Prov:Clair Mitchell MD 03/21/17 Disposition: 01 DISCHARGE HOME Condition: Stable Clair Mitchell MD Mar 21, 2017 17:03
[2017-03-21 17:08] VITALS: BP 132/77; TEMP 97.9
[2017-03-31] MEDS ORDERED: TRAM50TA PO (15:53)
== END 2017-03-21 17:10 | disposition home or self-care (01) ==
LOC: NEPD 12:46
DX: N85.7 Hematometra (principal)
CPT/HCPCS: 80048; 81001; 85025; 87086; 96361; 96374; 99284; J1885; J7030

== ENCOUNTER 2017-04-12 20:43 | Emergency (ER) | payer OTHER ==
[~2017-04-12] VITALS: Ht 157.5 cm; Wt 79.0 kg
[~2017-04-12 20:43] MED LIST changes: -NORC5TAB PO
[2017-04-12 20:46] VITALS: BP 173/99; PULSE 72; RESP 20; TEMP 97.6; O2SAT 100
[2017-04-12] MEDS ORDERED: SODIUM CHLOR 0.9% 1000 ML INJ 1,000 ML IV SCH (23:02)
--- NOTE | 2017-04-12 23:12 | PD ---
HPI Chief Complaint: Flank/Kidney Pain Time Seen by Provider: 22:56 Travel History International Travel<30 days: No Contact w/Intl Traveler<30days: No Traveled to known affect area: No History of Present Illness HPI 46-year-old female arrives to the ER complaining of generalized abdominal pain. She has a known history of hematometria. She follows with Dr. Luna who has documented that Lscope salpingectomy with excision of endometriosis may be of benefit for the patient that drainage of the new atrial cavity may be reasonable as well. It is scheduled for 4-6 weeks from now. Evidently a discussion ensued regarding pain management until that time and the patient was very upset that narcotics would not be used as the pain medication. Today the patient started to experience generalized abdominal pain while working. She vomited once. She reports no pain relief with Motrin. Pt denies vb/vd. PFSH Past Medical History Diminished Hearing: No Genitourinary: Yes Immunizations Current: Yes Tetanus Vaccination: Unknown Influenza Vaccination: No ?: Not : 3 Miscarriage: 0 : 0 Dilation and Curettage (D&C): Yes (novasure precedure) Past Surgical History Section: Yes (x3) Tonsillectomy: Yes Other Surgery: Yes (tummy tuck/ UTERNE ABLATION) Social History Alcohol Use: Yes (socially ) Tobacco Use: No Substance Use: No (pt denies ) Allergies-Medications (Allergen,Severity, Reaction): Coded Allergies: No Known Allergies (Unverified , 04/12/17) Reported Meds & Prescriptions Reported Meds & Active Scripts Active Zofran Odt (Ondansetron Odt) 4 Mg Tab 4 Mg SL Q8HR PRN Lortab (Hydrocodone-Acetaminophen) 5-325 Mg Tab 1-2 Tab PO Q6H PRN Review of Systems Except as stated in HPI: all other systems reviewed are Neg General / Constitutional: No: Fever Gastrointestinal: Positive: Nausea, Vomiting, Abdominal Pain Physical Exam Narrative GENERAL: 46 yo F, WNWD, mild distress 2/2 pain and or anxiety SKIN: Warm and dry. HEAD: Atraumatic. Normocephalic. EYES: Pupils equal and round. No scleral icterus. No injection or drainage. ENT: No nasal bleeding or discharge. Mucous membranes pink and moist. NECK: Trachea midline. No JVD. CARDIOVASCULAR: Regular rate and rhythm. RESPIRATORY: No accessory muscle use. Clear to auscultation. Breath sounds equal bilaterally. GASTROINTESTINAL: Diffuse non-specific tenderness. Soft. MUSCULOSKELETAL: Extremities without clubbing, cyanosis, or edema. No obvious deformities. NEUROLOGICAL: Awake and alert. No obvious cranial nerve deficits. Motor grossly within normal limits. Five out of 5 muscle strength in the arms and legs. Normal speech. PSYCHIATRIC: Appropriate mood and affect; insight and judgment normal. Data Data Last Documented VS Vital Signs Date Time Temp Pulse Resp B/P Pulse Ox O2 Delivery O2 Flow Rate FiO2 04/13/17 00:26 80 18 141/85 99 Room Air 04/12/17 20:46 97.6 Vital signs reviewed Orders Urinalysis - C+S If Indicated (04/12/17 21:26) Ed Urine Pregnancytest Poc (04/12/17 21:26) Complete Blood Count With Diff (04/12/17 23:02) Comprehensive Metabolic Panel (04/12/17 23:02) Lipase (04/12/17 23:02) Iv Access Insert/Monitor (04/12/17 23:02) Oximetry (04/12/17 23:02) Ondansetron Inj (Zofran Inj) (04/12/17 23:15) Sodium Chlor 0.9% 1000 Ml Inj (Ns 1000 M (04/12/17 23:02) Sodium Chloride 0.9% Flush (Ns Flush) (04/12/17 23:15) Morphine Inj (Morphine Inj) (04/12/17 23:15) Morphine Inj (Morphine Inj) (04/13/17 00:30) Ct Abd/Pel W Iv Contrast(Rout) (04/13/17 00:38) Iohexol 350 Inj (Omnipaque 350 Inj) (04/13/17 01:23) Ondansetron Inj (Zofran Inj) (04/13/17 03:30) Morphine Inj (Morphine Inj) (04/13/17 03:30) Labs Laboratory Tests Test 04/12/17 04/12/17 23:30 23:40 White Blood Count 14.7 TH/MM3 Red Blood Count 4.84 MIL/MM3 Hemoglobin 13.9 GM/DL Hematocrit 42.0 % Mean Corpuscular Volume 86.8 FL Mean Corpuscular Hemoglobin 28.8 PG Mean Corpuscular Hemoglobin 33.2 % Concent Red Cell Distribution Width 12.4 % Platelet Count 242 TH/MM3 Mean Platelet Volume 8.8 FL Neutrophils (%) (Auto) 90.7 % Lymphocytes (%) (Auto) 5.2 % Monocytes (%) (Auto) 2.9 % Eosinophils (%) (Auto) 0.7 % Basophils (%) (Auto) 0.5 % Neutrophils # (Auto) 13.3 TH/MM3 Lymphocytes # (Auto) 0.8 TH/MM3 Monocytes # (Auto) 0.4 TH/MM3 Eosinophils # (Auto) 0.1 TH/MM3 Basophils # (Auto) 0.1 TH/MM3 CBC Comment DIFF FINAL Differential Comment Sodium Level 137 MEQ/L Potassium Level 3.9 MEQ/L Chloride Level 100 MEQ/L Carbon Dioxide Level 25.8 MEQ/L Anion Gap 11 MEQ/L Blood Urea Nitrogen 15 MG/DL Creatinine 0.92 MG/DL Estimat Glomerular Filtration 65 ML/MIN Rate Random Glucose 109 MG/DL Calcium Level 9.2 MG/DL Total Bilirubin 0.4 MG/DL Aspartate Amino Transf 22 U/L (AST/SGOT) Alanine Aminotransferase 37 U/L (ALT/SGPT) Alkaline Phosphatase 78 U/L Total Protein 8.1 GM/DL Albumin 4.3 GM/DL Lipase 96 U/L Urine Color YELLOW Urine Turbidity CLEAR Urine pH 5.5 Urine Specific [place] 1.029 Urine Protein TRACE mg/dL Urine Glucose (UA) NEG mg/dL Urine Ketones TRACE mg/dL Urine Occult Blood SMALL Urine Nitrite NEG Urine Bilirubin NEG Urine Urobilinogen LESS THAN 2.0 MG/DL Urine Leukocyte Esterase NEG Urine RBC 1 /hpf Urine WBC 3 /hpf Urine Squamous Epithelial 1 /hpf Cells Urine Mucus FEW /lpf Microscopic Urinalysis Comment CULT NOT INDICATED MDM Medical Decision Making Medical Screen Exam Complete: Yes Emergency Medical Condition: Yes Differential Diagnosis Constipation, Gastritis, Acute Cholecystitis, Biliary Colic, Pancreatitis, MELGOZA , Hepatitis, Bowel Obstruction, Cystitis, Mesenteric Ischemia, AAA, Appendicitis , Renal Stone/Hydronephrosis, GERD, perforated viscous Narrative Course CBC & BMP Diagram 04/12/17 23:30 LFTs normal Lipase normal UA: no UTI CT abdomen/pelvis: hematometria, unchanged since prior. Pt found asleep at time of reassessment. Return precautions discussed with particular emphasis on fever. The patient is resting comfortably and feels better, is alert and in no distress. The patients results and examination findings were discussed. The repeat examination is unremarkable and benign. The history, exam, diagnostic testing, and current condition do not suggest any significant pathology to warrant further testing, continued ED treatment, admission, or surgical evaluation at this point. The vital signs have been stable. The patient does not have uncontrollable pain, intractable vomiting, or other significant symptoms. The patient's condition is stable and appropriate for discharge. The patient will pursue further outpatient evaluation with a primary care physician or other designated or consulting physician as indicated in the discharge instructions. The patient expressed understanding and was agreeable with this plan. Diagnosis Primary Impression: Hematometra Referrals: Jose Luna MD call for appointment Additional Instructions: You have a choice when it comes to health care, and we are glad that you chose [email or web address]. Hopefully, we have met your expectations on today's visit. You are welcome to return to [email or web address] at any time, as we are committed to meeting the health care needs of our community. PLEASE RETURN TO THE ER IF YOU DEVELOP A FEVER OR IF YOUR PAIN WORSENS OR BECOMES INCREASINGLY SEVERE. Med/Other Pt SpecificInfo: Prescription(s) given Scripts Ondansetron Odt (Zofran Odt)4 Mg Tab4 Mg SL Q8HR PRN (Nausea/Vomiting) #10 TAB Ref 0 Prov:Jf Anderson MD 04/13/17 Hydrocodone-Acetaminophen (Lortab)5-325 Mg Tab1-2 Tab PO Q6H PRN (PAIN SCALE 6 TO 10) #20 TAB Ref 0 Prov:Jf Anderson MD 04/13/17 Disposition: 01 DISCHARGE HOME Condition: Stable Jf Anderson MD Apr 12, 2017 23:12
[2017-04-12] MEDS ORDERED: ONDANSETRON HCL 4 MG/2 ML VIAL IVP ONE (23:15)
[2017-04-12] MEDS ORDERED: SODIUM CHLORIDE 0.9% FLUSH 10 ML FLUSH IV FLUSH PRN (23:15)
[2017-04-12] MEDS ORDERED: MORPHINE SULFATE 8 MG/ML INJ IV PUSH ONE (23:15)
[2017-04-12 23:30] VITALS: BP 173/88; PULSE 75; RESP 18; O2SAT 99
[2017-04-13 00:21] LABS: BLOOD, URINE SMALL (NEG); GLUCOSE,URINE NEG (NEG); KETONE, URINE TRACE mg/dL (NEG); MUCUS URINE FEW /lpf (OCC); NITRITE,URINE NEG (NEG); PH, URINE 5.5 (5.0-8.5); SQUAMOUS EPITHELIAL CELL URINE 1 /hpf (0-5); URINE COLOR YELLOW (YELLW/STRAW)
[2017-04-13 00:23] LABS: COMMENT (UR) CULT NOT INDICATED; CULTURE IF INDICATED CULT NOT INDICATED
[2017-04-13 00:25] LABS: AUTOMATED NEUTROPHIL # 13.3 TH/MM3 (1.8-7.7); BASOPHIL # 0.1 TH/MM3 (0-0.2); BASOPHIL % 0.5 % (0.0-2.0); EOSINOPHIL # 0.1 TH/MM3 (0-0.4); EOSINOPHIL % 0.7 % (0.0-4.0); HEMO FLAGS DIFF FINAL; LYMPH % 5.2 % (9.0-44.0); LYMPHOCYTE # 0.8 TH/MM3 (1.0-4.8); MEAN CELL VOLUME 86.8 FL (80.0-100.0); MEAN CORPUSCULAR HEMOGLOBIN 28.8 PG (27.0-34.0); MEAN CORPUSCULAR HGB CONC 33.2 % (32.0-36.0); MONO % 2.9 % (0.0-8.0); NEUT % 90.7 % (16.0-70.0); PLATELET COUNT 242 TH/MM3 (150-450); RED BLOOD COUNT 4.84 MIL/MM3 (4.00-5.30); RED CELL DISTRIBUTION WIDTH 12.4 % (11.6-17.2); WHITE BLOOD COUNT 14.7 TH/MM3 (4.0-11.0)
[2017-04-13 00:26] VITALS: BP 141/85; PULSE 80; RESP 18; O2SAT 99
[2017-04-13] MEDS ORDERED: MORPHINE SULFATE 8 MG/ML INJ IV PUSH ONE ×2 (00:30→03:30)
[2017-04-13 00:35] LABS: ALT (GPT) 37 U/L (10-53); ANION GAP 11 MEQ/L (5-15); AST (GOT) 22 U/L (15-37); BICARBONATE 25.8 MEQ/L (21.0-32.0); BLOOD UREA NITROGEN 15 MG/DL (7-18); CHLORIDE 100 MEQ/L (98-107); GLOMERULAR FILTRATION RATE 65 ML/MIN (>89); POTASSIUM 3.9 MEQ/L (3.5-5.1); SODIUM (NA) 137 MEQ/L (136-145)
[2017-04-13 00:37] LABS: ALKALINE PHOSPHATASE 78 U/L (45-117); TOTAL BILIRUBIN ADULT 0.4 MG/DL (0.2-1.0)
[2017-04-13] MEDS ORDERED: IOHEXOL 350 MG/ML 10 ML VIAL (for RAD DIAG) IV ONE (01:23)
--- NOTE | 2017-04-13 02:35 | RADRPT ---
EXAM DATE/TIME: 04/13/2017 01:23 [place] COMPARISON: CT ABDOMEN & PELVIS W CONTRAST, March 06, 2017, 9:08. INDICATIONS : Left flank and lower abdominal pain. IV CONTRAST: 95 cc Omnipaque 350 (iohexol) IV ORAL CONTRAST: No oral contrast ingested. RADIATION DOSE: 11.00 CTDIvol (mGy) MEDICAL HISTORY : None SURGICAL HISTORY : section. Tubal ligation.Breast augmentation. ENCOUNTER: Initial ACUITY: 1 day PAIN SCALE: 6/10 LOCATION: Left flank TECHNIQUE: Volumetric scanning of the abdomen and pelvis was performed. Using automated exposure control and adjustment of the mA and/or kV according to patient size, radiation dose was kept as low as reasonably achievable to obtain optimal diagnostic quality images. DICOM format image data is av ailable electronically for review and comparison. FINDINGS: Examination of the lung bases demonstrates no abnormality. No pleural fluid is identified. No pulmona ry nodules are present. There is hypodensity within the liver compatible with cyst measuring 2 cm in segment 2. There is a hemangioma within segment 7 measuring 10 mm. The spleen is normal in size and f ree of focal defects. The gallbladder and pancreas are unremarkable. No intrahepatic or extrahepatic ductal dilatation is seen. The right adrenal gland is unremarkable. There is a nodule posterior to th e body the stomach possibly in the left adrenal with soft tissue density Hounsfield units. MRI is rec ommended for further evaluation if clinically indicated.There is bilateral hydrosalpinx with a large amount of fluid in the endometrial cavity. Cervical carcinoma is not excluded. There is free fluid in the pelvis. No abnormally enlarged lymph nodes are identified. CONCLUSION: 1. No evidence of acute abdominal or pelvic process. 2. Large amount of fluid in endometrial obstructing neoplasm is not excluded. Direct visualization is recommended. 3. Hepatic cysts and hepatic hemangioma. 4. Indeterminate mass in left upper quadrant as above. MRI is recommended for further evaluation if c linically indicated. Jose Gonzalez MD on April 13, 2017 at 2:20 Board Certified Radiologist. This report was verified electronically.
[2017-04-13] MEDS ORDERED: HYDR-3533 PO (02:47)
[2017-04-13] MEDS ORDERED: ZOFR4TAB3 SL (03:23)
[2017-04-13] MEDS ORDERED: ONDANSETRON HCL 4 MG/2 ML VIAL IV PUSH ONE (03:30)
== END 2017-04-13 03:53 | disposition home or self-care (01) ==
LOC: NEPC 20:43
DX: N85.7 Hematometra (principal)
CPT/HCPCS: 74177; 80053; 81001; 83690; 84703; 85025; 96361; 96374; 96375; 96376; 99285; J2270; J2405; J7030; Q9967

== ENCOUNTER → 2017-05-05 | Day surgery (SDC) | payer OTHER ==
--- NOTE | 2017-04-30 15:36 | MH ---
cc: AZIZA COKER MD, JESSE S. MD DATE OF ADMISSION: 05/05/2017 DATE OF : 1970 REASON FOR ADMISSION Laparoscopy for pelvic pain and hysteroscopy for an endometrial fluid collection. HISTORY OF PRESENT ILLNESS The patient is a 46-year-old female, 3, para 3, status post three C-sections and tubal ligation. She has issues with chronic pelvic pain, also has issue with sciatic pain on the left side. She has had nausea and vomiting associated with this pain in the past. She is concerned that the pain is related to bilateral hydrosalpinx and issues with hematometra. She wants to proceed with a laparoscopic evaluation of the pelvis, possible salpingectomy and hysteroscopy. PAST MEDICAL HISTORY The patient's medical issues center around the chronic pelvic pain and back pain. She in the past has been using opiates for that the pain; presently not using any. Negative for heart, lung, liver disease, hypertension, diabetes or stroke. PAST SURGICAL HISTORY 1. x3. 2. Tubal ligation with the third . 3. Endometrial ablation. 4. Breast augmentation. 5. Abdominoplasty. ADMISSIONS COORDINATOR HISTORY No STDs or abnormal Pap smears. OB HISTORY Three C-sections. FAMILY HISTORY Noncontributory. SOCIAL HISTORY She does not smoke cigarettes, use alcohol or drugs. MEDICATIONS Tramadol 50 mg q.6h. p.r.n. REVIEW OF SYSTEMS As above. No chest pain, orthopnea, PND. Had nausea and vomiting a few weeks ago but none in the recent couple days. Other 14-point review negative. PHYSICAL EXAMINATION VITAL SIGNS: On exam she is afebrile. Vital signs stable. Blood pressure 120/70. Height 5 feet 2 inches, weight 171, BMI 31.5. GENERAL: Patient is alert and oriented in no acute stress. MENTAL STATUS: No sign of cognitive dysfunction or depression. HEENT: Within normal limits. NECK: Supple. No JVD. CHEST: Clear. HEART: Regular rate and rhythm. ABDOMEN: Soft, nontender. No hepatosplenomegaly. No CVA tenderness. PELVIC: Exam will be detailed under anesthesia. EXTREMITIES: Warm. SKIN: Without rashes. NEUROLOGIC: Nonfocal. No DVT signs. IMAGING CT scan consistent with possible bilateral hydrosalpinx and 2.5 cm endometrial fluid collection. No adenopathy or any sign of obstruction or pelvic mass on CT scan. ASSESSMENT AND PLAN Patient with chronic pelvic pain. We discussed risks, benefits and alternatives of planned procedure. She is aware that pelvic pain is often multifactorial and she may well not have any relief of her symptoms after the surgery. She is also at increased risk of injury to internal organs secondary to her prior surgeries. We will use a left upper quadrant approach, most likely perform salpingectomy and evaluate for endometriosis. Regarding the hematometra issue she has had endometrial ablation in the past. We can dilate the cervix under laparoscopic guidance and hopefully that solves some of her discomfort issues. The patient is aware that anything we do from our standpoint will have no impact whatsoever on her sciatic pain and she will need to follow that up. She is also aware that we will not be using any narcotics postoperatively as an outpatient. She will be on tramadol or Toradol. As above the patient is aware of the risks, benefits and alternatives. She agrees with the plan. We anticipate outpatient procedure. MD ALBERTINA Aly/BT /11:01 AM /3:28 PM
[~2017-05-05] VITALS: Ht 157.5 cm; Wt 78.9 kg
[~2017-05-05] MED LIST changes: +*morphine SULFATE 8 MG/ML PERIprocedure ONLY ONE; +ACETAMINOPHEN 1000 MG/100 ML 100 ML IV ONE; +CHLORHEXIDINE GLUCONATE 2 % 1 PACK (2 CLOTHS) TOPICAL PRN; +DO NOT ADM ANY ANTICOAGULANT DRUGS PRN; -IBUP200C PO; +INSULIN HUMAN REGULAR 1,000 UNITS/10 ML VIAL SQ PRN; +KETAMINE HCL 500 MG/5 ML VIAL ONE; +KETOROLAC TROMETHAMINE 30 MG/ML (IVP) VIAL IV PUSH PRN; +KETOROLAC TROMETHAMINE 30 MG/ML (IVP) VIAL ONE; +KETOROLAC TROMETHAMINE 60 MG/2 ML (IM) VIAL IM ONE; +LACTATED RINGER'S 1000 ML IV PRN; +LIDOCAINE 1%/EPINEPHrine 1:100,000 SOLN 50 ML VIAL INFIL ONE; +METOPROLOL TARTRATE 25 MG TAB PO PRN; +MORPHINE SULFATE 4 MG/ML INJ ONE; +NEOSTIGMINE 3 MG/3 ML SYR IV ONE; +ONDANSETRON HCL 4 MG/2 ML VIAL IV PRN; +ONDANSETRON HCL 4 MG/2 ML VIAL IV PUSH ONE; +POVIDONE IODINE 5% (ANTISEPSIS KIT) 4 APPLICATIONS EACH NARE PRN; +PROPOFOL 200 MG/20 ML AMP IV ONE; +SODIUM CHLORID 0.9% 500 ML IV PRN; -TRAM50TA PO; +ceFAZolin 2 GM PREMIX 50 ML IV SCH; +traMADol HCL 50 MG TAB ONE; +traMADol HCL 50 MG TAB PO PRN
--- NOTE | 2017-05-05 10:40 | PD.OP ---
Operative Report Date of Surgery: May 05, 2017 Preoperative Diagnosis: (1) Chronic pelvic pain in female (2) Hematometra Postoperative Diagnosis: (1) Hydrosalpinx (2) Intestinal adhesions (3) Chronic pelvic pain in female (4) Hematometra Procedure: BILATERAL SALPINGECTOMY HYSTEROSCOPE LYSIS OF ADHESIONS Anesthesia: GETA/OGT Surgeon: Jose Luna Client Support Associate(s): HMX X 1 Operation and Findings: EXTENSIVE ADHESIONS OF TUBES AND BOWEL INTRACAVITARY ADHESIONS SEE DICTATED NOTE Jose Luna MD May 05, 2017 10:40
[2017-05-05 12:34] VITALS: BP 123/81; PULSE 67; RESP 18; TEMP 98.1; O2SAT 100
--- NOTE | 2017-05-06 15:02 | MP ---
cc: AZIZA COKER MD DATE OF SURGERY: 05/05/2017 PREOPERATIVE DIAGNOSES 1. Chronic pelvic pain. 2. Hematometra. POSTOPERATIVE DIAGNOSIS 1. Chronic pelvic pain. 2. Hematometra. 3. Extensive pelvic adhesions, left side. PROCEDURE 1. Bilateral salpingectomy with removal of hydrosalpinx. 2. Lysis of adhesions involving the descending colon. 3. Hysteroscopy with lysis of intrauterine adhesions. SURGEON Dr. Coker. ANESTHESIA General endotracheal with OG tube. ESTIMATED BLOOD LOSS Less than 20 cc. FLUIDS 1500 cc crystalloid. URINE OUTPUT [address] Coker [employer] NANNY Mcdonald Staff x1. FINDINGS External genitalia normal. POP-Q score: Aa is -3; Ap is -3; point C is -8; total vaginal length is 10; genital hiatus is 4; perineal body is 4. Uterus is anteverted and anteflexed. Once the adhesions were lysed within the endometrial cavity the cavity sounds to approximately 8 cm. The uterus itself was approximately 10 weeks' size. The ovaries are normal. There are extensive adhesions on the colon and the tube on the left side. The right side has much more mobility but clearly hydrosalpinx noted. The remainder of the pelvis is unremarkable. SPECIMENS Right and left tube. Endometrial curettage. COMPLICATIONS None. COUNTS Needle and sponge counts correct. DRAINS Ba catheter. DISPOSITION To recovery room stable. PROPHYLAXIS Antibiotic prophylaxis: 2 grams Ancef. DVT prophylaxis: Sequential compression pressure device. Timeout procedure per protocol. SUMMARY OF INDICATION FOR PROCEDURE Patient with chronic pelvic pain, typically left-sided. Also noted a small fluid collection within the endometrial cavity consistent with hematometra. The patient has a prior history of endometrial ablation. DETAILS OF PROCEDURE The patient was taken to the operating theatre, identified, prepped and draped in a fashion appropriate for planned procedure. She is in the dorsal lithotomy position with careful attention paid of placement of legs in the stirrups to avoid undue stress to sensitive neurovascular structures. Above findings noted. Neurovascular integrity documented. Ba catheter was placed. In light of the patient's prior history of three C-sections and her history of left-sided pain, decision was made to go to the left upper quadrant for entry. Mccormack's point was identified. The area was infiltrated with epinephrine and lidocaine solution. A Veress needle was placed. Gas was insufflated. Intra-abdominal cavity entry pressures were 7, received a maximal pressure of 20 after approximately 3 liters of CO2 gas. A 5 mm trocar was placed under direct visualization. Above findings noted. We placed an umbilical trocar under direct visualization, 5 mm. Lysis of adhesions of the left was performed so we could use the left port. We use Harmonic energy and made sure clear we were clear of the bowel. The suprapubic port was placed, a 10-12 mm, and a 5 mm was in the left lower quadrant. There were extensive adhesions on the left. We identified the ureter. We identified the bowel. We took adhesions down with cold dissection, no energy for the majority of the dissection. Once the tube was identified we did come across the mesosalpinx and the tube at the cornua with Harmonic energy. On the right side adhesions were much less tense the tube was relatively mobile, came across the mesosalpinx with Harmonic energy and completed the salpingectomy without complication. The pelvis was inspected and irrigated. All areas were hemostatic with and without gas pressure. The ureters were identified and were clearly centimeters below the area of dissection. There was no sign of any diverticulitis or any bowel issue. The exact etiology of the adhesions on the left is uncertain at this point. In light of the patient's history of fluid collection in the endometrial cavity under laparoscopic guidance we performed hysteroscopy after dilating the cervix. We lysed adhesions with mechanical energy and found no significant findings within the endometrial cavity. The endometrial cavity was relatively atrophic we did proceed. We did obtain curettings, however. At this point the hysteroscopic procedure was concluded. The attention was turned back to the abdomen. We did inspect again. All areas were hemostatic without gas pressure. We placed hemostatic powder over the areas of dissection for added reassurance, closed the 10-12 port with a suture closure device incorporating fascia and removed trocars under direct visualization and closed all port sites with 4-0 Vicryl and Dermabond. The patient tolerated the procedure well and went to the recovery room in stable condition. MD ALBERTINA Aly/KIKI /10:01 AM /2:33 PM
== END | disposition home or self-care (01) ==
LOC: HSDC 05:58
PROVIDERS: ATTEND Obstetrics & Gynecology Gynecology
DX: N70.11 Chronic salpingitis (principal); K66.0 Peritoneal adhesions (postprocedural) (postinfection); N85.7 Hematometra; G89.29 Other chronic pain; R10.2 Pelvic and perineal pain; M54.30 Sciatica, unspecified side
CPT/HCPCS: 00840; 58559; 58661; 88305; J0131; J0690; J1885; J2270; J2405; J2710; J3010; J7120

== ENCOUNTER → 2017-06-24 | Outpatient (CLI) | payer OTHER ==
[~2017-06-24] MED LIST changes: -*morphine SULFATE 8 MG/ML PERIprocedure ONLY ONE; -ACETAMINOPHEN 1000 MG/100 ML 100 ML IV ONE; -CHLORHEXIDINE GLUCONATE 2 % 1 PACK (2 CLOTHS) TOPICAL PRN; -DO NOT ADM ANY ANTICOAGULANT DRUGS PRN; +GADODIAMIDE PF 287 MG/ML 5 ML VIAL (for RAD MRI) IV PUSH ONE; -INSULIN HUMAN REGULAR 1,000 UNITS/10 ML VIAL SQ PRN; -KETAMINE HCL 500 MG/5 ML VIAL ONE; -KETOROLAC TROMETHAMINE 30 MG/ML (IVP) VIAL IV PUSH PRN; -KETOROLAC TROMETHAMINE 30 MG/ML (IVP) VIAL ONE; -KETOROLAC TROMETHAMINE 60 MG/2 ML (IM) VIAL IM ONE; -LACTATED RINGER'S 1000 ML IV PRN; -LIDOCAINE 1%/EPINEPHrine 1:100,000 SOLN 50 ML VIAL INFIL ONE; -METOPROLOL TARTRATE 25 MG TAB PO PRN; -MORPHINE SULFATE 4 MG/ML INJ ONE; -NEOSTIGMINE 3 MG/3 ML SYR IV ONE; -ONDANSETRON HCL 4 MG/2 ML VIAL IV PRN; -ONDANSETRON HCL 4 MG/2 ML VIAL IV PUSH ONE; -POVIDONE IODINE 5% (ANTISEPSIS KIT) 4 APPLICATIONS EACH NARE PRN; -PROPOFOL 200 MG/20 ML AMP IV ONE; -SODIUM CHLORID 0.9% 500 ML IV PRN; -ceFAZolin 2 GM PREMIX 50 ML IV SCH; -traMADol HCL 50 MG TAB ONE; -traMADol HCL 50 MG TAB PO PRN
--- NOTE | 2017-06-24 18:23 | RADRPT ---
EXAM DATE/TIME: 06/24/2017 16:49 [facility] COMPARISON: CT ABDOMEN & PELVIS W CONTRAST, March 06, 2017, 9:08. CT ABDOMEN & PELVIS W CONTRAST, April 13, 2017 , 1:23. INDICATIONS : Adrenal gland disorder. CONTRAST: 15 cc Omniscan (gadodiamide) IV MEDICAL HISTORY : None. SURGICAL HISTORY : section. Breast augmentation. Abdominoplasty. ENCOUNTER: Subsequent ACUITY: 1 day PAIN SCORE: 0/10 LOCATION: Abdomen. TECHNIQUE: Multiplanar, multisequence magnetic resonance imaging of the abdomen was performed without and with i ntravenous contrast. FINDINGS: There are 3 separate masses in the liver. There is one in the right hepatic lobe measures 2 cm in siz e and typical characteristics of a hemangioma completely fills and in on the postcontrast delayed xavi ges. There is a simple cyst in segment 6 of the liver measures almost a centimeter in size without an y abnormal enhancement. There is a mass in the left hepatic lobe which demonstrates T2 prolongation a nd does not completely fill in on delayed post contrast imaging demonstrates peripheral enhancement p robably an atypical hemangioma. In the left adrenal gland there is an approximate 1.7 cm mass corresp onding to the low attenuating mass on the patient's CT examination without nulling of the signal on c hemical shift imaging probably a non-lipid laden adenoma. There is also a tiny subcentimeter hepatic cyst in the dome of the liver. The spleen, pancreas, kidneys, right adrenal are unremarkable. There i s no evidence for any appreciable pathological adenopathy, free fluid, or bowel obstruction. CONCLUSION: 1. Hepatic hemangioma and separate hepatic cyst in the right hepatic lobe in addition to a tiny subce ntimeter cyst hepatic dome. 2. Left hepatic lobe mass is probably a benign hemangioma as well with atypical enhancement. 3. 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 4. Follow up is suggested with repeat MRI examination of the abdomen in 6 months. Isaac Cottrell MD on June 24, 2017 at 18:14 Board Certified Radiologist. This report was verified electronically.
== END ==
LOC: HRAD 16:06
PROVIDERS: ATTEND Urology
DX: E27.9 Disorder of adrenal gland, unspecified (principal)
CPT/HCPCS: 74183; A9579

== ENCOUNTER 2018-10-22 06:38 | Inpatient (IN) ==
[2018-10-22] MEDS ORDERED: Metoprolol Tartrate 25 MG Tablet PO ONE (07:08)
[2018-10-22] MEDS ORDERED: Chlorhexidine Gluconate 2% 1 Pack (2 Cloths) TOPICAL ONE (07:08)
[2018-10-22] MEDS ORDERED: Sodium Chloride 0.9% 2 ML Flush PRN IV.FLUSH (07:10)
[2018-10-22] MEDS ORDERED: Gabapentin 400 MG Capsule PO SCH (07:15)
[2018-10-22] MEDS ORDERED: Ropivacaine 0.5% PF Inj 20 ML Vial ONE (07:56)
[2018-10-22] MEDS ORDERED: Lidocaine 1% Inj 50 ML Vial ONE (07:57)
[2018-10-22] MEDS ORDERED: Sodium Chlor 0.9% Inj 500 ML IV.SIG SCH (08:00)
[2018-10-22] MEDS ORDERED: ceFAZolin 2 GM Premix Inj 2 GM/50 ML PIGGYBACK IV.SIG SCH (08:00)
--- NOTE | 2018-10-22 08:00 | P.OP ---
Surgeon: Devon Mascorro MD Operation and Findings: Preoperative diagnosis: 1. Suspected hematometra 2. Chronic pelvic pain 3. Cervical stenosis and/or uterine synechiae 4. Thickened endometrium 5. Opioid use disorder 6. Chronic neck and back pain/fibromyalgia 7. Obesity Postop diagnosis 1. Same as above status post below procedure Procedure 1. Total abdominal hysterectomy, lysis of adhesions taking over 45 minutes please add modifier to represent this. Surgeon Dr. Devon Mascorro Manager [employer]: [place] OR scrub staff Findings: 1. Normal external female genitalia, stenotic cervix, intra-abdominally omental or intestinal adhesions. Dense scarring of the bladder to the lower uterine segment and upper cervix. Normal-appearing slightly enlarged uterus, elongated cervix approximately 6 inches. Normal bilateral ovaries, surgically absent fallopian tubes. 2. Normal cystoscopy, bilateral ureteral efflux appreciated Anesthesia: General endotracheal -After the patient was placed under general anesthesia the anesthesiologist placed a ultrasound-guided TAP block. Specimen: Uterus and cervix to pathology, routine -The uterus and cervix were sent for frozen intraoperatively and by verbal report there was no atypical endometrial findings. Estimated blood loss: 300 cc Fluid replacement: 1200 cc lactated Ringer's Urine output: 500 cc clear DVT prophylaxis: Sequential compression devices throughout the case Antibiotics: 2 g Ancef preoperatively Counts: correct x2 Time out done: yes Disposition: Stable to PACU then to the floor for recovery Indications: Patient is a 48-year-old who was seen in outpatient setting initially for chronic pelvic pain with imaging suggesting hematometra and thickened endometrium, imaging also suggested she had a enlarged left ovary and some of her pain was localized to the left lower quadrant, repeat imaging in our office confirmed endometrial thickening and endometrial fluid but normal ovaries. Outpatient endometrial sampling was unsuccessful due to suspected cervical stenosis and/or uterine synechiae, we proceeded with a attempted hysteroscopy in a surgery center a week or two prior to this case and failed due to stenosis,, creation of a false tract and issues with the fluid deficit. After that procedure was unsuccessful we discussed multiple options including referral to minimally invasive specialist, rn gyn oncologist, proceeding with a reattempt of hysteroscopy and lastly moving forward with a hysterectomy, doing a frozen section and involving a FORMULA ROOM WORKER oncologist if frozen section suspected hyperplasia or cancer, I confirmed with the local rn gyn oncologist Dr. Samson that he would be available if needed prior to scheduling the case. The patient elected to move forward with hysterectomy possible bilateral salpingo- oophorectomy, possible cystoscopy and staging if needed. Please see H&P in outpatient documentation for consents and further details. Description of procedure: The patient was taken to the OR and placed under general anesthesia, she was positioned in lithotomy in Bhupendra stirrups with both arms out. Anesthesia placed a ultrasound-guided TAP block. The abdomen and vagina were prepped and draped in the standard sterile fashion. A three-way catheter was placed and a sponge stick placed in the vagina for possible need of manipulation. A Pfannenstiel incision was made sharply and carried down to the fascia which was extended bilaterally with Lovelace scissors. The fascia was dissected off the underlying rectus muscles inferiorly and superiorly with Lovelace scissors. The abdomen was entered sharply with a scalpel and no adhesions were appreciated of the intestine or omentum. Peritoneal washings were collected in case the frozen section returned as a malignancy but were later discarded after the frozen section returned normal. A O'Joe-O'Russo retractor was placed after the abdomen was packed with lap pads. The blades were placed carefully to avoid deep lateral traction. Both round ligaments were ligated with 0 Vicryl and transected a avascular space was created through the broad ligament and a Jono clamp was used to clamp bilaterally across the uterine ovarian ligaments. These were transected and double ligated with two transfixion sutures of 0 Vicryl bilaterally. Using sharp dissection a bladder flap was developed taking around 30 minutes due to dense scarring from her previous sections. Using curved Heaneys the uterine arteries were clamped transected and ligated with 0 Vicryl bilaterally. Using serial straight clamps the cardinal ligaments were clamped, transected and ligated with 0 Vicryl down to the external cervical os. Using curved Heaneys clamping just caudal to the cervix across the vaginal apex a colpotomy was made and the cuff was closed with transfixion sutures of 0 Vicryl incorporating the uterosacrals for support and then a second layer was performed with locking 0 Vicryl. The abdomen was irrigated and found to be hemostatic. The specimen was sent down to pathology for frozen section and during this time a cystoscopy was performed using sterile water. Approximately 200 cc were used to fill the bladder and the above findings were appreciated. The Ba was reinserted and the pathologist called stating the specimen showed no endometrial atypia. All pedicles were reinspected again after irrigation and found to be hemostatic. The rectus muscle was loosely reapproximated with 0 interrupted Vicryl. The fascia was closed from [id number] with running unlocked unlooped #1 PDS. The subcutaneous tissue was irrigated and found to be hemostatic and the space was closed with interrupted 0 Vicryl. The skin was closed in a subcuticular fashion with 3-0 Monocryl and Steri-Strips were applied. The patient was awoken from anesthesia in stable condition.
[2018-10-22] MEDS ORDERED: Sodium Chlor 0.9% Inj 10 ML ONE ×2 (08:18→08:23)
[2018-10-22] MEDS ORDERED: Bupivacaine PF 0.25% Inj 30 ML Vial ONE ×2 (08:18→08:23)
[2018-10-22] MEDS ORDERED: Sodium Chlor 0.9% Inj 20 ML ONE ×2 (08:18→08:23)
[2018-10-22] MEDS ORDERED: Succinylcholine Inj 100 MG/5 ML Syringe IV.PUSH ONE (08:25)
[2018-10-22] MEDS ORDERED: Neostigmine Inj 5 MG/5 ML Syringe IV.PUSH ONE (08:25)
[2018-10-22] MEDS ORDERED: Lidocaine PF 1% Inj 5 ML Syringe OTHER ONE (08:25)
[2018-10-22] MEDS ORDERED: Glycopyrrolate Inj 1 MG/5 ML Syringe IV.PUSH ONE (08:25)
[2018-10-22] MEDS ORDERED: Ketorolac Inj 30 MG/ML (IVP) Vial IV.PUSH ONE ×2 (08:25→13:00)
[2018-10-22] MEDS ORDERED: Sodium Chloride 0.9% 2 ML Flush BID IV.FLUSH SCH (09:00)
[2018-10-22] MEDS ORDERED: HYDROmorphone PF Inj 2 MG/ML Vial ONE (09:17)
[2018-10-22] MEDS ORDERED: Methylene Blue Inj 100 MG/10 ML Vial OTHER ONE (09:44)
[2018-10-22] MEDS ORDERED: Acetaminophen 325 MG Tablet PO PRN (12:13)
[2018-10-22] MEDS ORDERED: Simethicone 80 MG Chew Tablet PO PRN (12:13)
[2018-10-22] MEDS ORDERED: Morphine Sulfate Inj 8 MG/ML Vial IV.PUSH PRN ×2 (12:13→19:09)
[2018-10-22] MEDS ORDERED: fentaNYL Citrate Inj 100 MCG/2 ML Ampul ONE (12:26)
[2018-10-22] MEDS ORDERED: *Meperidine Inj 25 MG/ML Vial PERIprocedural Use ONLY ONE (12:46)
[2018-10-22] MEDS ORDERED: *morphine SULFATE 4 MG/ML PERIprocedure ONLY ONE (13:07)
[2018-10-22] MEDS: Gabapentin 300 MG Capsule PO SCH ×2 (14:21→18:21)
[2018-10-22] MEDS: Ketorolac Inj 30 MG/ML (IVP) Vial IV.PUSH SCH (18:55)
[2018-10-22] MEDS ORDERED: Labetalol HCl Inj 100 MG/20 ML Vial IV.PUSH PRN (19:05)
[2018-10-23] MEDS: Ketorolac Inj 30 MG/ML (IVP) Vial IV.PUSH SCH ×4 (00:16→18:50)
[2018-10-23] MEDS ORDERED: Labetalol HCl Inj 20 MG/4 ML Vial IV.PUSH PRN (02:45)
[2018-10-23 04:57] LABS: Baso % (Auto) 0.3 % (0.0-2.0); Eos % (Auto) 0.1 % (0.0-4.0); Hemoglobin 11.6 gm/dL (11.6-15.3); Lymph % (Auto) 12.2 % (9.0-44.0); Mean Corpuscular HGB Conc 34.1 % (32.0-36.0); Mean Corpuscular Hemoglobin 29.6 pg (27.0-34.0); Mean Platelet Volume 8.4 fL (7.0-11.0); Mono # (Auto) 0.7 th/mm3 (0.0-0.9); Mono % (Auto) 8.7 % (0.0-8.0); Neut # (Auto) 6.6 th/mm3 (1.8-7.7); Neut % (Auto) 78.7 % (16.0-70.0); Platelet Count 229 th/mm3 (150-450); Red Blood Count 3.91 mil/mm3 (4.00-5.30); Red Cell Distribution Width 13.3 % (11.6-17.2); White Blood Count 8.4 th/mm3 (4.0-11.0)
[2018-10-23 05:35] LABS: Calcium 8.2 mg/dL (8.5-10.1); Carbon Dioxide 25.9 meq/L (21.0-32.0); Potassium 3.9 meq/L (3.5-5.1)
--- NOTE | 2018-10-23 07:28 | P.PNOB ---
Subjective Interval history: Doing well, pain controlled, ambulating, voiding after Ba removed, scant vaginal spotting, tolerating diet no nausea or vomiting, positive flatus, ready for discharge home. Physical Exam Vital signs: Temp Pulse Resp BP Pulse Ox 98.1 F 72 18 110/75 100 10/23/18 02:50 10/23/18 02:50 10/22/18 21:50 10/23/18 02:50 10/23/18 02:50 - Constitutional no acute distress - Routine Respiratory Exam Present: CTA bilaterally - Routine Cardiovascular Exam Present: RRR - Routine Abdominal Exam Present: soft Comments: Bandage clean dry and intact - Detailed Neurological Exam: Coma Scale Verbal Response: Oriented - Urinary Catheter Management Indwelling Urethral Catheter Cath placed during this visit: yes, but has since been removed by the nurse Urethral indwelling: No Removal date: 10/23/18 Removal time: 03:30 Results - Labs CBC & Chem 7: 10/23/18 04:45 10/23/18 04:45 Labs: Laboratory Results - last 24 hr 10/23/18 10/23/18 04:45 04:45 WBC 8.4 RBC 3.91 L Hgb 11.6 Hct 34.0 L MCV 87.0 MCH 29.6 MCHC 34.1 RDW 13.3 Plt Count 229 MPV 8.4 Neut % (Auto) 78.7 H Lymph % (Auto) 12.2 [place] % (Auto) 8.7 H Eos % (Auto) 0.1 Baso % (Auto) 0.3 Neut # (Auto) 6.6 Lymph # (Auto) 1.0 [place] # (Auto) 0.7 Eos # (Auto) 0.0 Baso # (Auto) 0.0 WBC Differential . Differential Comment Auto diff final Sodium 139 Potassium 3.9 Chloride 106 Carbon Dioxide 25.9 Anion Gap 7 BUN 11 Creatinine 0.83 Estimated GFR 73 L Random Glucose 124 H Calcium 8.2 L Assessment and Plan - Postoperative Procedures Operation Date: 10/22/18 08:30 Actual Procedures Side Surgeon p ABDOMINAL HYSTERECTOMY (UTERUS AND CERVIX), CYSTOSCOPY, EXAM UNDER ANESTHESIA Bilateral Devon Mascorro MD 48-year-old status post total abdominal hysterectomy secondary to pelvic pain, hematometra. Intraoperative frozen section normal. 1. Postoperative day #1: Afebrile, vital signs stable, a.m. labs noted and appropriate, discussed postoperative precautions, expectations, follow-up, discharge home today. -Queried PDMP and reviewed report. 2. Opioid use disorder/chronic pain: Continue her home gabapentin, sent with Percocet 7.5/325 x 7 days for acute postoperative pain.
--- NOTE | 2018-10-23 07:33 | P.DS ---
Date of admission: 10/22/18 06:38 Primary care physician: No Primary Care Physician Brief History from admission: pt admitted after KEN for hematometra, d/c on post op day #1 DS: Medications - Discharge Medications Prescriptions: ibuprofen 800 mg PO Q8H #30 tab oxycodone-acetaminophen 2 tab PO Q4H PRN 7 Days tab PRN Reason: Pain Scale 6 To 10 DS: Summary Hospital Course: see brief history - Time Spent with Patient Total time spent providing and/or coordinating discharge services: Less than 30 minutes - Quality: VTE Deep Vein Thrombosis/Pulmonary Embolism Present on Admission: No Exam Vital signs: Vital Signs 10/22/18 12:18 10/22/18 12:27 10/22/18 12:30 Temperature 98.5 F Pulse Rate 67 63 65 Respiratory Rate 16 16 15 Blood Pressure 157/90 H 166/76 H 159/80 H Pulse Oximetry 100 100 100 10/22/18 12:45 10/22/18 12:50 10/22/18 13:00 Temperature Pulse Rate 75 66 Respiratory Rate 7 L 8 L Blood Pressure 155/82 H 150/83 H Pulse Oximetry 100 98 98 10/22/18 13:15 10/22/18 13:51 10/22/18 16:10 Temperature 97.8 F Pulse Rate 66 78 85 Respiratory Rate 14 20 18 Blood Pressure 145/81 H 177/88 H 176/96 H Pulse Oximetry 96 98 10/22/18 19:53 10/22/18 21:50 10/23/18 00:18 Temperature 98.3 F 98.4 F Pulse Rate 81 85 98 H Respiratory Rate 18 18 Blood Pressure 181/94 H 173/86 H 165/101 H Pulse Oximetry 99 97 96 10/23/18 02:50 Temperature 98.1 F Pulse Rate 72 Respiratory Rate Blood Pressure 110/75 Pulse Oximetry 100 Intake & Output 10/22/18 10/23/18 10/23/18 18:59 06:59 18:59 Intake Total 1100 / 1100 1000 / 1000 Output Total 1150 / 1150 3400 / 3400 Balance -50 / -50 -2400 / -2400 Weight 79.5 kg Intake: IV 1000 / 1000 LR 1000 mL Inj 1,000 ML @ 100 1000 / 1000 mls/hr IV.CONT .Q10H [facility] Rx#: [id number] Anesthesia Amount 1100 / 1100 Output: Estimated Blood Loss 300 / 300 Urine Amount (Catheter) 850 / 850 3400 / 3400 Indwelling Urethral Catheter 850 / 850 3400 / 3400 Other: Weight On Admission 79.5 kg Results Procedures completed during hospitalization: [facility] Labs on day of discharge: Labs from last 24 hours 10/23/18 10/23/18 04:45 04:45 WBC 8.4 RBC 3.91 L Hgb 11.6 Hct 34.0 L MCV 87.0 MCH 29.6 MCHC 34.1 RDW 13.3 Plt Count 229 MPV 8.4 Neut % (Auto) 78.7 H Lymph % (Auto) 12.2 [place] % (Auto) 8.7 H Eos % (Auto) 0.1 Baso % (Auto) 0.3 Neut # (Auto) 6.6 Lymph # (Auto) 1.0 [place] # (Auto) 0.7 Eos # (Auto) 0.0 Baso # (Auto) 0.0 WBC Differential . Differential Comment Auto diff final Sodium 139 Potassium 3.9 Chloride 106 Carbon Dioxide 25.9 Anion Gap 7 BUN 11 Creatinine 0.83 Estimated GFR 73 L Random Glucose 124 H Calcium 8.2 L Discharge Plan - Discharge Disposition Patient Disposition: Discharge Home - Discharge Condition Condition: Good - Discharge Order Discharge Orders: Discharge Order (Routine); Ordered 10/23/18 Ordered By: Devon Mascorro - Physicians Team Primary Care Provider: Primary Care Fozia Ireland Attending Provider: Devon Mascorro - Rxs /Orders / Referrals /Forms Prescriptions: New docusate sodium [Colace] 100 mg Capsule 100 mg PO BID 30 Days Qty: 60 RF: 0 ibuprofen 800 mg Tablet 800 mg PO Q8H Qty: 30 RF: 1 oxycodone-acetaminophen 7.5-325 mg Tablet 2 tab PO Q4H PRN (Reason: Pain Scale 6 To 10) 7 Days RF: 0 Continue gabapentin 300 mg Capsule 300 mg PO DAILY Discontinued ketorolac 10 mg tablet 10 mg PO Q6H PRN (Reason: pain) Qty: 20 RF: 0 oxycodone 5 mg Tablet 5 mg PO TID PRN (Reason: Pain) Referrals: Primary Care Fozia Ireland [Primary Care Provider] - See Instructions - Discharge Instructions Patient Printed Instructions: Hysterectomy (DC)
[2018-10-23] MEDS: Gabapentin 300 MG Capsule PO SCH ×3 (09:30→18:49)
--- NOTE | 2018-10-24 05:08 | P.PNOB ---
Subjective Interval history: pt felt the need to stay additional day after seeing her yesterday AM, still doing well, pain controlled, ambulating, voiding, tolerating diet no nausea or vomiting, positive flatus, ready for discharge home. Physical Exam Vital signs: Temp Pulse Resp BP Pulse Ox 98.2 F 65 18 141/62 H 98 10/24/18 00:00 10/24/18 00:00 10/24/18 00:00 10/24/18 00:00 10/24/18 00:00 - Constitutional no acute distress - Routine Respiratory Exam Present: CTA bilaterally - Routine Cardiovascular Exam Present: RRR - Routine Abdominal Exam Present: soft Comments: incision C/D/I - Detailed Neurological Exam: Coma Scale Eye Opening: Spontaneous Verbal Response: Oriented - Urinary Catheter Management Indwelling Urethral Catheter Cath placed during this visit: yes, but has since been removed by the nurse Urethral indwelling: No Removal date: 10/23/18 Removal time: 03:30 Results - Labs CBC & Chem 7: 10/23/18 04:45 10/23/18 04:45 Labs: Laboratory Results - last 24 hr 10/23/18 04:45 Sodium 139 Potassium 3.9 Chloride 106 Carbon Dioxide 25.9 Anion Gap 7 BUN 11 Creatinine 0.83 Estimated GFR 73 L Random Glucose 124 H Calcium 8.2 L Assessment and Plan - Postoperative Procedures Operation Date: 10/22/18 08:25 Actual Procedures Side Surgeon p ABDOMINAL HYSTERECTOMY (UTERUS AND CERVIX), CYSTOSCOPY, EXAM UNDER ANESTHESIA Bilateral Devon Mascorro MD 48-year-old status post total abdominal hysterectomy secondary to pelvic pain, hematometra. Intraoperative frozen section normal. 1. POD #2: meeting milestones, d/c home today 2. Opioid use disorder/chronic pain: notified her pain MD about my Rx for additional meds for post op pain, continue home gabapentin - Time Spent With Patient Total time spent is greater than 50% in coordination of care (as documented) at patient's floor/unit and/or counseling patient:
[2018-10-24] MEDS: Gabapentin 300 MG Capsule PO SCH (09:16)
== END 2018-10-24 12:37 | disposition home or self-care (01) | DRG 743 ==
LOC: HSDI 06:38 → EDSTATUS 08:30 → H1EA 13:31
PROVIDERS: ADMIT Obstetrics & Gynecology; ATTEND Obstetrics & Gynecology
CPT/HCPCS: 36415; 80048; 80053; 84703; 85025; 86850; 86900; 86901; 88307; 88331; 93005; J0131; J0330; J0690; J1100; J1170; J1885; J2175; J2250; J2270; J2405; J2704; J2710; J2795; J3010; J7120